=== PATIENT | female | born 1990 | race Caucasian/White ===

== ENCOUNTER 2017-08-17 00:38 | Emergency (ER) | payer MEDICAID ==
[2017-08-17] MEDS: LORAZEPAM 0.5 MG TAB PO (07:09)
== END 2017-08-17 07:43 | disposition home or self-care (01) ==
LOC: FTE 00:38
DX: F41.9 Anxiety disorder, unspecified (principal); M79.602 Pain in left arm
CPT/HCPCS: 99283-25; Z7502